=== PATIENT | male | born 1970 | race Caucasian/White ===

== ENCOUNTER → 2017-01-27 | Outpatient (CLI) | payer OTHER ==
[~2017-01-27] MED LIST: ACET-1256 PO; ASCA500 PO; CHOL100010 PO; LSN20 PO; MULT-506 PO; OMEG10007 PO
[2017-01-27 14:13] LABS: HEMATOCRIT 44.2 % (42-52); MEAN CELL VOLUME 83.2 fL (80-100); MEAN CORPUSCULAR HEMOGLOBIN 29.4 pg (25-34); MEAN CORPUSCULAR HGB CONC 35.3 g/dl (32-36); PLATELET COUNT 216 K/uL (130-400); RED BLOOD COUNT 5.31 M/uL (4.7-6.1); WHITE BLOOD COUNT 5.79 K/uL (4.8-10.8)
[2017-01-27 14:59] LABS: BLOOD UREA NITROGEN 19 mg/dl (7-18); GLUCOSE 91 mg/dl (70-99)
[2017-01-27 15:00] LABS: ALB/GLOB RATIO 1.1 (0.9-2); ALKALINE PHOSPHATASE 63 U/L (45-117); ALT/SGPT 27 U/L (12-78); AST/SGOT 15 U/L (15-37); BUN/CREATININE RATIO 17.6 (10-20); CARBON DIOXIDE 28 mmol/L (21-32); CHLORIDE 108 mmol/L (98-107); CHOLESTEROL 174 mg/dl (0-200); CHOLESTEROL/HDL RATIO 5.4; HDL CHOLESTEROL 32 mg/dl; LDL CHOLESTEROL CALCULATED 105 mg/dl; POTASSIUM 4.2 mmol/L (3.5-5.1); SODIUM 141 mmol/L (136-145); TRIGLYCERIDES 187 mg/dl (0-150); VERY LOW DENSITY LIPOPROT CALC 37 mg/dl
[2017-01-27 15:10] LABS: PROSTATE SPECIFIC ANTIGEN 0.675 ng/ml (0.000-4.000)
== END | disposition home or self-care (01) ==
LOC: C.LABBC 10:06
PROVIDERS: ATTEND Internal Medicine
DX: Z00.00 Encounter for general adult medical examination without abnormal findings (principal); I10 Essential (primary) hypertension

== ENCOUNTER → 2017-02-04 | Outpatient (CLI) | payer OTHER ==
--- NOTE | 2017-02-04 15:52 | DIAGNOSTIC IMAGING REPORT ---
BILATERAL LOWER EXTREMITY VENOUS DOPPLER HISTORY: R ARM PAIN, R/O DVT Right COMPARISON STUDY: None. FINDINGS: There is normal compressibility, flow, and augmentation within the right upper extremity deep venous system. IMPRESSION: No sonographic evidence of deep venous thrombosis within the right upper extremity deep venous system. Electronically signed by: Candelario Morrissey M.D. 02/04/2017 3:51 PM Dictated Date/Time: 02/04/2017 3:49 PM
== END | disposition home or self-care (01) ==
LOC: C.ULTRBC 15:04
PROVIDERS: ATTEND Physician Assistant
DX: M79.601 Pain in right arm (principal)

== ENCOUNTER 2017-02-27 12:59 | Emergency (ER) | payer OTHER ==
[~2017-02-27] VITALS: Ht 177.8 cm; Wt 98.5 kg
[2017-02-27 13:04] VITALS: TEMP 37.2; Ht 177.8 cm; Wt 98.5 kg
--- NOTE | 2017-02-27 15:29 | DIAGNOSTIC IMAGING REPORT ---
R VENOUS DOPPLER UPR EXT UNIL HISTORY: Pain. Edema. RUE swelling COMPARISON STUDY: None. FINDINGS: The internal jugular vein is patent. There is normal flow within the subclavian vein. There is normal flow and compressibility within the left axillary, basilic, brachial, radial, ulnar, and visualized cephalic veins. IMPRESSION: No DVT within the upper extremity. Soft tissue evaluation shows no well-defined mass or collection The above report was generated using voice recognition software. It may contain grammatical, syntax or spelling errors. Electronically signed by: Jcarlos Hidalgo M.D. 02/27/2017 3:28 PM Dictated Date/Time: 02/27/2017 3:27 PM
--- NOTE | 2017-02-27 15:33 | DIAGNOSTIC IMAGING REPORT ---
R EXTREMITY NONVASCULAR LIMITED CLINICAL HISTORY: RUE swelling pain. Edema. TECHNIQUE: Ultrasound COMPARISON STUDY: None FINDINGS: No evidence for mass or collection at the site of discomfort/nodularity/edematous change right forearm IMPRESSION: No evidence for mass or collection by ultrasound criteria The above report was generated using voice recognition software. It may contain grammatical, syntax or spelling errors. Electronically signed by: Jcarlos Hidalgo M.D. 02/27/2017 3:32 PM Dictated Date/Time: 02/27/2017 3:31 PM
[2017-02-27 15:51] VITALS: BP 132/89; PULSE 67; O2SAT 99
--- NOTE | 2017-02-27 17:00 | EMERGENCY ROOM VISIT NOTE ---
History First contact with patient: 13:08 Chief Complaint: SWELLING TO EXTREMITY Stated Complaint: SWELLING TO RT ARM History of Present Illness The patient is a 46 year old male who presents to the Emergency Room with complaints of persistent right forearm swelling, hand swelling and pain. The patient reports that he underwent a venipuncture/lab draw approximately 4 weeks ago. When he started to notice discomfort in the arm, his family doctor ordered an ultrasound of the right upper extremity to rule out DVT. His ultrasound was normal. The patient reports that over the past week, he has noticed returning swelling, and felt a "tinge of pain" in his forearm when lifting weights on Tuesday. He has not noticed any redness of the forearm. He denies any paresthesias or numbness of the hand or fingers. He currently denies any pain. The patient is [id number]. Review of Systems 10 system review was performed and was negative except for pertinent positives and negatives as indicated in history of present illness Past Medical/Surgical History Medical Problems: (1) Essential (Primary) Hypertension (2) Gallbladder disease (3) Hypertension Surgical Problems: (1) History of cholecystectomy Family History FH: cancer FH: gallbladder disease FH: hypertension FH: kidney disease Social History Smoking Status: Never Smoker Alcohol Use: none Marital Status: Occupation Status: employed Current/Historical Medications Scheduled Ascorbic Acid (Vitamin C), 500 MG PO DAILY Lisinopril (Lisinopril), 20 MG PO DAILY Multivitamin (Multivitamin), 1 TAB PO DAILY Physical Exam Vital Signs Date Time Temp Pulse Resp B/P (MAP) Pulse Ox O2 Delivery O2 Flow Rate FiO2 02/27/17 15:51 67 18 132/89 99 02/27/17 13:04 37.2 85 20 149/105 97 Room Air Pain Rating (0-10): 0 Physical Exam CONSTITUTIONAL: Healthy and well nourished. Alert and oriented X 3 with positive affect. HEENT: Normocephalic, atraumatic. Pupils equal, round and reactive. NECK: Full active range of motion without discomfort. MUSCULOSKELETAL: Examination of the right upper extremity shows larger girth compared to the left. I do not notice any erythema, ecchymosis or streaking. No palpable cords are noted through the volar forearm region. He has no tenderness to palpation or fullness through the antecubital space. He has no worsening pain with resisted flexion of the wrist. Capillary refill is less than 2 seconds. INTEGUMENTARY: No rash or other significant dermatologic conditions noted. NEUROLOGIC: No focal neurologic deficits noted. Right hand and fingers are sensory intact. Medical Decision & Procedures ER Provider Diagnostic Interpretation: Venous ultrasound of the right upper extremity is negative for DVT. A nonvascular soft tissue ultrasound of the forearm was also performed to show no evidence for fluid collections. Radiologist reports were reviewed. ED Course Patient history and physical exam were performed. Nurse's notes were reviewed. Vital signs were reviewed, showing an elevated blood pressure 149/105. Venous ultrasound and on vascular ultrasound of the right forearm did not show any evidence for deep vein thrombosis or underlying fluid collections. The patient was encouraged to limit activities, and apply heat to the arm. He was encouraged to elevate the arm for subjective swelling and pain. Ibuprofen or Tylenol if needed for additional pain relief. Was encouraged to follow-up with his PCP as needed for further management. Medical Decision Blood Pressure Screening Patient's blood pressure: Normal blood pressure Impression Primary Impression: Swelling of right upper extremity Departure Information Dispostion Home / Self-Care Condition GOOD Forms HOME CARE DOCUMENTATION FORM, IMPORTANT VISIT INFORMATION Patient Instructions My [facility] Additional Instructions Limited use of right arm until swelling improves. Follow-up with your family doctor as needed.
== END 2017-02-27 15:52 | disposition home or self-care (01) ==
LOC: C.EDB 13:01 → C.EDD 15:52
DX: M79.89 Other specified soft tissue disorders (principal); M79.601 Pain in right arm; I10 Essential (primary) hypertension

== ENCOUNTER 2017-08-01 16:41 | Emergency (ER) | payer OTHER ==
[~2017-08-01] VITALS: Ht 177.8 cm; Wt 95.0 kg
[~2017-08-01 16:41] MED LIST changes: -ACET-1256 PO; -CHOL100010 PO; -OMEG10007 PO
[2017-08-01 17:03] VITALS: TEMP 36.6; Ht 177.8 cm; Wt 95.0 kg
--- NOTE | 2017-08-01 18:29 | DIAGNOSTIC IMAGING REPORT ---
CHEST ONE VIEW PORTABLE CLINICAL HISTORY: Atypical chest pain COMPARISON STUDY: No previous studies for comparison. FINDINGS: The cardiac and mediastinal contours are normal. There is no evidence of focal pulmonary consolidation. There is no evidence of failure. No pleural effusions are visualized.[ IMPRESSION: No active disease in the chest. Electronically signed by: Charli Shirley M.D. 08/01/2017 6:28 PM Dictated Date/Time: 08/01/2017 6:27 PM
[2017-08-01 18:40] VITALS: O2SAT 98
[2017-08-01 19:06] LABS: BASO % 0.1 %; BASO ABS # 0.01 K/uL (0-0.2); EOS % 0.4 %; EOS ABS # 0.03 K/uL (0-0.5); HEMATOCRIT 43.5 % (42-52); HEMOGLOBIN 15.7 g/dL (14.0-18.0); IG# 0.01 K/uL (0.00-0.02); LYMPH % 18.3 %; LYMPH ABS # 1.26 K/uL (1.2-3.4); MEAN CELL VOLUME 82.9 fL (80-100); MEAN CORPUSCULAR HEMOGLOBIN 29.9 pg (25-34); MEAN CORPUSCULAR HGB CONC 36.1 g/dl (32-36); MEAN PLATELET VOLUME 10.4 fL (7.4-10.4); MONO % 6.1 %; MONO ABS # 0.42 K/uL (0.11-0.59); NEUT ABS # 5.15 K/uL (1.4-6.5); PLATELET COUNT 195 K/uL (130-400); RED CELL DISTRIBUTION WIDTH CV 12.5 % (11.5-14.5); RED CELL DISTRIBUTION WIDTH SD 37.6 fL (36.4-46.3); WHITE BLOOD COUNT 6.88 K/uL (4.8-10.8)
--- NOTE | 2017-08-01 19:21 | EMERGENCY ROOM VISIT NOTE ---
History Report prepared by Slim: Demetrius Walker Under the Supervision of: Dr. Ede Pop M.D. First contact with patient: 18:04 Chief Complaint: CARDIAC ASSESSMENT Stated Complaint: CHEST DISCOMFORT Nursing Triage Summary: pt reports started with L side chest discomfort around 1430 radiation into L shoulder . pt denies increased sob deniesNV or DEXTER at this tiem History of Present Illness The patient is a 46 year old male who presents to the Emergency Room with complaints of constant left-sided chest discomfort beginning at 1430 today. The patient states that his design consultant recommended that he come to the emergency department today. He notes that he regularly sees his design consultant once a year for his hypertension. He reports that his discomfort felt like indigestion, but states that he is not currently feeling any discomfort. He notes that his discomfort radiated to his left shoulder into his left underarm. He reports that he occasionally feels chest discomfort when he exerts himself. He also complains of shakes and chills, but states that these symptoms may be due to his nervousness. He notes that he recently flew to [place] at the beginning of last month. He reports that his father had a history of hypertension as well , but states that he does not have any family history of other heart issues. Pt denies cough, SOB, sorethroat, LOC, headache, fevers, diaphoresis, visual changes, neck pain, tearing pain radiating to the back, personal history or family history of aneurysm or pulmonary embolism, breathing difficulties, leg swelling, coagulation abnormalities, recent surgery, nausea, vomiting, abdominal pain, melena, hematochezia, urinary symptoms, numbness, weakness, lymphadenopathy, rash, or other complaints. Source of History: patient Onset: 1430 today Position: chest (left) Timing: constant Modifying Factors (Worsening): exertion Note: He also complains of left shoulder discomfort, left underarm discomfort, chills , and shakes. Review of Systems See HPI for pertinent positives and negatives. A total of ten systems were reviewed and were otherwise negative. Past Medical & Surgical Medical Problems: (1) Essential (Primary) Hypertension (2) Gallbladder disease (3) Hypertension Surgical Problems: (1) History of cholecystectomy Family History FH: cancer FH: gallbladder disease FH: hypertension FH: kidney disease Social History Smoking Status: Never Smoker Alcohol Use: none Marital Status: Housing Status: lives with family Occupation Status: employed Current/Historical Medications Scheduled Lisinopril (Lisinopril), 20 MG PO DAILY Allergies Coded Allergies: Amiodarone (Unverified Allergy, Severe, PT FELT LIKE HIS "HEAD BLOWS UP", 02/27/17) Physical Exam Vital Signs Date Time Temp Pulse Resp B/P (MAP) Pulse Ox O2 Delivery O2 Flow Rate FiO2 08/01/17 22:46 88 20 143/100 98 Room Air 08/01/17 22:22 100 20 160/102 98 Room Air 08/01/17 21:15 72 18 160/109 98 Room Air 08/01/17 19:24 93 18 166/114 97 Room Air 08/01/17 18:40 98 Room Air 08/01/17 18:40 98 Room Air 08/01/17 18:30 81 08/01/17 17:03 36.6 84 20 176/100 98 Room Air Physical Exam GENERAL: Awake, alert, well-appearing, in no distress HENT: Normocephalic, atraumatic. Oropharynx unremarkable. EYES: Normal conjunctiva. Sclera non-icteric. NECK: Supple. No nuchal rigidity. FROM. No masses. RESPIRATORY: Clear to auscultation. No wheezes. CARDIAC: Normal rate. Normal rhythm. No murmurs. No rubs. Extremities warm and well perfused. Pulses equal. No JVD. GI: Soft, non-distended. No tenderness to palpation. No rebound or guarding. No masses. RECTAL: Deferred. MUSCULOSKELETAL: Atraumatic. Chest examination reveals no tenderness. The back is symmetrical on inspection without obvious abnormality. There is no CVA tenderness to palpation. No joint edema. LOWER EXTREMITIES: Calves are equal size bilaterally and non-tender. No edema. No discoloration. NEURO: Normal sensorium. No sensory or motor deficits noted. SKIN: No rash or jaundice noted. Medical Decision & Procedures ER Provider Diagnostic Interpretation: Radiology results as stated below per my review and radiologist interpretation: CHEST ONE VIEW PORTABLE CLINICAL HISTORY: Atypical chest pain COMPARISON STUDY: No previous studies for comparison. FINDINGS: The cardiac and mediastinal contours are normal. There is no evidence of focal pulmonary consolidation. There is no evidence of failure. No pleural effusions are visualized.[ IMPRESSION: No active disease in the chest. Electronically signed by: Charli Shirley M.D. 08/01/2017 6:28 PM Laboratory Results 08/01/17 18:43 Red Blood Count 5.25, Mean Corpuscular Volume 82.9, Mean Corpuscular Hemoglobin 29.9, Mean Corpuscular Hemoglobin Concent 36.1, Mean Platelet Volume 10.4, Neutrophils (%) (Auto) 75.0, Lymphocytes (%) (Auto) 18.3, Monocytes (%) (Auto) 6.1, Eosinophils (%) (Auto) 0.4, Basophils (%) (Auto) 0.1, Neutrophils # (Auto) 5.15, Lymphocytes # (Auto) 1.26, Monocytes # (Auto) 0.42, Eosinophils # (Auto) 0.03, Basophils # (Auto) 0.01 08/01/17 18:43 Test 08/01/17 18:43 08/01/17 19:24 08/01/17 21:00 White Blood Count 6.88 K/uL (4.8-10.8) Red Blood Count 5.25 M/uL (4.7-6.1) Hemoglobin 15.7 g/dL (14.0-18.0) Hematocrit 43.5 % (42-52) Mean Corpuscular Volume 82.9 fL (80-100) Mean Corpuscular Hemoglobin 29.9 pg (25-34) Mean Corpuscular Hemoglobin Concent 36.1 g/dl (32-36) Platelet Count 195 K/uL (130-400) Mean Platelet Volume 10.4 fL (7.4-10.4) Neutrophils (%) (Auto) 75.0 % Lymphocytes (%) (Auto) 18.3 % Monocytes (%) (Auto) 6.1 % Eosinophils (%) (Auto) 0.4 % Basophils (%) (Auto) 0.1 % Neutrophils # (Auto) 5.15 K/uL (1.4-6.5) Lymphocytes # (Auto) 1.26 K/uL (1.2-3.4) Monocytes # (Auto) 0.42 K/uL (0.11-0.59) Eosinophils # (Auto) 0.03 K/uL (0-0.5) Basophils # (Auto) 0.01 K/uL (0-0.2) RDW Standard Deviation 37.6 fL (36.4-46.3) RDW Coefficient of Variation 12.5 % (11.5-14.5) Immature Granulocyte % (Auto) 0.1 % Immature Granulocyte # (Auto) 0.01 K/uL (0.00-0.02) Anion Gap 7.0 mmol/L (3-11) Est Creatinine Clear Calc Drug Dose 98.0 ml/min Estimated GFR () 93.8 Estimated GFR (Non- 81.0 BUN/Creatinine Ratio 13.3 (10-20) Calcium Level 8.9 mg/dl (8.5-10.1) Total Bilirubin 0.5 mg/dl (0.2-1) Direct Bilirubin 0.1 mg/dl (0-0.2) Aspartate Amino Transf (AST/SGOT) 19 U/L (15-37) Alanine Aminotransferase (ALT/SGPT) 47 U/L (12-78) Alkaline Phosphatase 65 U/L (45-117) Total Creatine Kinase 119 U/L (39-308) Creatine Kinase MB < 0.5 ng/ml (0.5-3.6) Creatine Kinase MB Ratio (0-3.0) Total Protein 7.7 gm/dl (6.4-8.2) Albumin 4.1 gm/dl (3.4-5.0) Lipase 178 U/L (73-393) Bedside D-Dimer 249 ng/mlFEU (0-450) Troponin I < 0.015 ng/ml (0-0.045) Laboratory results reviewed by me Medications Administered Medications (Trade) Dose Ordered Sig/Shabana Route Start Time Stop Time Status Last Admin Dose Admin Lisinopril (Zestril Tab) 20 mg NOW STAT PO 08/01/17 22:33 08/01/17 22:34 DC 08/01/17 22:33 20 MG Aspirin (Aspirin Chew) 324 mg NOW STAT PO 08/01/17 22:33 08/01/17 22:34 DC 08/01/17 22:33 324 MG ECG Per My Interpretation Indication: chest pain Rate (beats per minute): 76 Rhythm: normal sinus Findings: no acute ischemic change, no ectopy Comparison ECG Date: 04/27/16 Change: no significant change Change: EKG #2:Normal sinus, 86, nonspecific ST, prolonged QTC, no ectopy. Compared to EKG #1, nonspecific T wave abnormality is new. ED Course 1810: The patient was evaluated in room A12. A complete history and physical exam was performed. 2003: I reevaluated and updated the patient. 2010: I called out for cardiology. 2048: I reevaluated and updated the patient. I alerted him about the delay for cardiology. 2119: [facility] [place]. Christianson - [facility] [facility] [place]: I rechecked the patient. 2232: Aspirin 324mg PO, Lisinopril 20mg PO 2235: I reevaluated the patient. Discussed results and discharge instructions: he verbalized understanding and agreement. The patient is ready for discharge. Medical Decision Triage Nursing notes reviewed. The patient's presentation and history were concerning for chest pain. Etiologies such as cardiac ischemia, aortic dissection, pulmonary embolism, pneumonia, pneumothorax, musculoskeletal, infections, gastrointestinal, as well as others were entertained. The patient was evaluated. He was currently pain-free. His ECG was nonischemic. Repeat ECG showed some nonspecific changes in the lateral T waves. Chest x-ray was negative. CBC, chemistries and LFTs were normal. Cardiac markers and d-dimer performed. These were negative. The patient was reassessed and was doing well. Consultation was placed with cardiology. The patient had a repeat troponin which was 0. I did discuss the case with [facility] cardiology, Dr. Smart. As the patient has atypical symptoms, no ischemic changes on ECG, and 2 negative troponins it was felt that he could be discharged with aspirin, increasing his lisinopril, and having an urgent stress test done through the office. The patient felt very comfortable with this plan. If his symptoms recur or other symptoms develop he will come back to the emergency department right away. He will take it easy.I gave my usual and customary discussion regarding this issue. By the evaluation outlined above other emergent etiologies such as those listed in the differential, as well as others, were deemed relatively unlikely. The patient was educated about the findings as listed above. All questions were answered and the patient was pleased with the treatment. Return instructions were outlined and the patient was discharged in stable condition. The patient was referred to cardiology for follow-up for a recheck of the current condition. Blood Pressure Screening Patient's blood pressure: Elevated blood pressure Referred to cardiology. Impression Primary Impression: Left sided chest pain Scribe Attestation The scribe's documentation has been prepared under my direction and personally reviewed by me in its entirety. I confirm that the note above accurately reflects all work, treatment, procedures, and medical decision making performed by me. Departure Information Dispostion Home / Self-Care Referrals Kendra Lutz M.D. (PCP) Forms IMPORTANT VISIT INFORMATION Patient Instructions My [facility] Additional Instructions Take a baby aspirin daily until directed otherwise by cardiology. Take lisinopril 20 mg twice daily until directed otherwise by your design consultant. You should hear from the design consultant office by noon tomorrow regarding a stress test. If you do not hear from the office call and let them know that Dr. Smart was made aware of the issue and is going to be arranging a stress test in the next few days. Acetaminophen(Tylenol) may be used for fever or pain. Use 1000mg every six hours as needed. Avoid using more than 4000mg in a 24 hour period. Rest and drink plenty of fluids as tolerated. Avoid strenuous activities and anything that worsens your pain. Resume normal activities once your symptoms resolve. Return to the ER immediately for worsening or persistent chest pain, abdominal pain, vomiting, fevers, chest pains, difficulty breathing, worsening of your condition, or as needed.
[2017-08-01 19:24] LABS: ALBUMIN 4.1 gm/dl (3.4-5.0); ALT/SGPT 47 U/L (12-78); AST/SGOT 19 U/L (15-37); BLOOD UREA NITROGEN 15 mg/dl (7-18); CALCIUM 8.9 mg/dl (8.5-10.1); CARBON DIOXIDE 26 mmol/L (21-32); CREATININE 1.09 mg/dl (0.60-1.40); GLUCOSE 100 mg/dl (70-99); LIPASE 178 U/L (73-393); POTASSIUM 4.1 mmol/L (3.5-5.1); SODIUM 139 mmol/L (136-145)
[2017-08-01 19:29] LABS: ALKALINE PHOSPHATASE 65 U/L (45-117); CKMB < 0.5 ng/ml (0.5-3.6); TOTAL PROTEIN 7.7 gm/dl (6.4-8.2)
[2017-08-01] MEDS ORDERED: ASPIRIN 81 MG CHEW PO STA (22:33)
[2017-08-01] MEDS ORDERED: LISINOPRIL 20 MG TAB PO STA (22:33)
[2017-08-01 22:46] VITALS: BP 143/100; PULSE 88; O2SAT 98
== END 2017-08-01 22:51 | disposition home or self-care (01) ==
LOC: C.EDB 16:42 → C.EDA 22:51
DX: R07.9 Chest pain, unspecified (principal); I10 Essential (primary) hypertension; Z90.49 Acquired absence of other specified parts of digestive tract; Z82.49 Family history of ischemic heart disease and other diseases of the circulatory system; Z88.8 Allergy status to other drugs, medicaments and biological substances

== ENCOUNTER 2017-10-16 12:26 | Emergency (ER) | payer OTHER ==
[~2017-10-16] VITALS: Ht 177.8 cm; Wt 98.1 kg
[~2017-10-16 12:26] MED LIST changes: -ASCA500 PO; -MULT-506 PO
[2017-10-16 12:31] VITALS: TEMP 36.6; Ht 177.8 cm; Wt 98.1 kg
[2017-10-16] MEDS ORDERED: LORAZEPAM 1 MG TAB SL STA (12:45)
[2017-10-16] MEDS ORDERED: ONDANSETRON INJ 2 MG/ML 2 ML VIAL IV STA (12:45)
[2017-10-16 12:54] VITALS: O2SAT 100
--- NOTE | 2017-10-16 13:12 | EMERGENCY ROOM VISIT NOTE ---
History Report prepared by Slim: Fabian Narayan Under the Supervision of: Dr. Ede Pop M.D. First contact with patient: 12:29 Chief Complaint: SEIZURE Stated Complaint: SEIZURE/STROKE, FAINTING OR PANIC ATTACK History of Present Illness The patient is a 47 year old male who presents to the Emergency Room with complaints of a sudden near syncopal episode occurring prior to arrival. The patient states that he was driving [place], and he noticed that he had some blood in his eye, and then 5 minutes later he started to hyperventilate and felt like he was going to pass out. The patient states that he then started to lose control of his hands, and they went numb and would not move. He notes that he then started to hyperventilate, though he did not have any mouth numbness. The patient states that he felt fine before this episode, and he states that he has been having some allergies recently and taking Julianne D. The patient has not eaten much today, and he states that his mouth has been dry the past day. The patient has only had three similar episodes of anxiety in the past, and he does not take any anxiety medications. He notes that he has some chest discomfort currently, and he notes that he has had this in the past with his anxiety. The patient has had a stress test several weeks ago which had no issues, and he states that his blood pressure has been fine recently, and he is taking lisinopril. He states that he has not been coughing, sneezing, or vomiting recently, and the patient notes that he has a problem with seeing blood. Pt denies headache, fevers, chills, diaphoresis, visual changes, neck pain, nausea, vomiting, abdominal pain, back pain, melena, hematochezia, urinary symptoms, weakness, lymphadenopathy, rash, or other complaints. Source of History: patient Onset: prior to arrival Position: other (global) Quality: other (near syncopal episode) Timing: other (sudden) Associated Symptoms: + numbness Note: Associated symptoms: Hyperventilate, lost control of his hands, hand numbness, chest discomfort Review of Systems See HPI for pertinent positives and negatives. A total of ten systems were reviewed and were otherwise negative. Past Medical & Surgical Medical Problems: (1) Essential (Primary) Hypertension (2) Gallbladder disease (3) Hypertension Surgical Problems: (1) History of cholecystectomy Family History FH: cancer FH: gallbladder disease FH: hypertension FH: kidney disease Social History Smoking Status: Never Smoker Alcohol Use: none Marital Status: Housing Status: lives with family Occupation Status: employed Current/Historical Medications Scheduled Lisinopril (Lisinopril), 20 MG PO DAILY Allergies Coded Allergies: Amiodarone (Unverified Allergy, Severe, PT FELT LIKE HIS "HEAD BLOWS UP", 10/16/17) Physical Exam Vital Signs Date Time Temp Pulse Resp B/P (MAP) Pulse Ox O2 Delivery O2 Flow Rate FiO2 10/16/17 14:30 68 16 143/92 98 Room Air 10/16/17 12:54 100 Room Air 10/16/17 12:32 70 10/16/17 12:31 36.6 71 27 155/97 100 Room Air Physical Exam GENERAL: Awake, alert, anxious appearing, no distress HENT: Normocephalic, atraumatic. TM's normal. Oropharynx unremarkable. EYES: PERRL. EOMI. Normal conjunctiva except for a small subconjunctival hemorrhage on the right lateral sclera. No hyphema. Cornea clear. Sclera non- icteric. NECK: Supple. No nuchal rigidity. FROM. No bruit. RESPIRATORY: Breath sounds equal. No wheezes. No rhonchi. Normal respiratory effort. CARDIAC: Normal rate. Regular rhythm. No murmurs. No rubs. No JVD. GI: Soft, non distended. No tenderness to palpation. No rebound or guarding. No masses. RECTAL: Deferred. MUSCULOSKELETAL: Unremarkable. No edema. No discoloration. Gross motor strength symmetric. NEURO: Cranial nerves 2-12 grossly intact except for subjective tingling of mid face. Normal sensorium. No sensory or motor deficits noted. Speech normal. No pronator drift. Normal rapid alternating movements. Normal heel to luo. SKIN: No rash or jaundice noted. LYMPH: No adenopathy. Medical Decision & Procedures Laboratory Results 10/16/17 13:05 Red Blood Count 5.33, Mean Corpuscular Volume 81.4, Mean Corpuscular Hemoglobin 28.9, Mean Corpuscular Hemoglobin Concent 35.5, Mean Platelet Volume 10.3, Neutrophils (%) (Auto) 63.9, Lymphocytes (%) (Auto) 28.2, Monocytes (%) (Auto) 6.4, Eosinophils (%) (Auto) 0.5, Basophils (%) (Auto) 0.3, Neutrophils # (Auto) 3.71, Lymphocytes # (Auto) 1.64, Monocytes # (Auto) 0.37, Eosinophils # (Auto) 0.03, Basophils # (Auto) 0.02 10/16/17 13:05 Test 10/16/17 13:05 White Blood Count 5.81 K/uL (4.8-10.8) Red Blood Count 5.33 M/uL (4.7-6.1) Hemoglobin 15.4 g/dL (14.0-18.0) Hematocrit 43.4 % (42-52) Mean Corpuscular Volume 81.4 fL (80-100) Mean Corpuscular Hemoglobin 28.9 pg (25-34) Mean Corpuscular Hemoglobin Concent 35.5 g/dl (32-36) Platelet Count 213 K/uL (130-400) Mean Platelet Volume 10.3 fL (7.4-10.4) Neutrophils (%) (Auto) 63.9 % Lymphocytes (%) (Auto) 28.2 % Monocytes (%) (Auto) 6.4 % Eosinophils (%) (Auto) 0.5 % Basophils (%) (Auto) 0.3 % Neutrophils # (Auto) 3.71 K/uL (1.4-6.5) Lymphocytes # (Auto) 1.64 K/uL (1.2-3.4) Monocytes # (Auto) 0.37 K/uL (0.11-0.59) Eosinophils # (Auto) 0.03 K/uL (0-0.5) Basophils # (Auto) 0.02 K/uL (0-0.2) RDW Standard Deviation 36.8 fL (36.4-46.3) RDW Coefficient of Variation 12.4 % (11.5-14.5) Immature Granulocyte % (Auto) 0.7 % Immature Granulocyte # (Auto) 0.04 K/uL (0.00-0.02) Prothrombin Time 11.0 SECONDS (9.0-12.0) Prothromb Time International Ratio 1.0 (0.9-1.1) Activated Partial Thromboplast Time 24.0 SECONDS (21.0-31.0) Partial Thromboplastin Ratio 0.9 Anion Gap 10.0 mmol/L (3-11) Est Creatinine Clear Calc Drug Dose 92.5 ml/min Estimated GFR () 86.4 Estimated GFR (Non- 74.6 BUN/Creatinine Ratio 15.0 (10-20) Calcium Level 9.0 mg/dl (8.5-10.1) Magnesium Level 1.9 mg/dl (1.8-2.4) Total Bilirubin 0.7 mg/dl (0.2-1) Direct Bilirubin 0.1 mg/dl (0-0.2) Aspartate Amino Transf (AST/SGOT) 21 U/L (15-37) Alanine Aminotransferase (ALT/SGPT) 32 U/L (12-78) Alkaline Phosphatase 61 U/L (45-117) Total Protein 8.0 gm/dl (6.4-8.2) Albumin 4.2 gm/dl (3.4-5.0) Thyroid Stimulating Hormone (TSH) 1.560 uIu/ml (0.300-4.500) Laboratory results reviewed by me Medications Administered Medications (Trade) Dose Ordered Sig/Shabana Route Start Time Stop Time Status Last Admin Dose Admin Lorazepam (Ativan Tab) 1 mg NOW STAT SL 10/16/17 12:45 10/16/17 12:47 DC 10/16/17 12:59 1 MG Ondansetron HCl (Zofran Inj) 4 mg NOW STAT IV 10/16/17 12:45 10/16/17 12:47 DC 10/16/17 13:12 4 MG ECG Per My Interpretation Indication: syncope Rate (beats per minute): 70 Rhythm: normal sinus Findings: no acute ischemic change, no ectopy ED Course 1229: The patient was evaluated in room B1. A complete history and physical exam was performed. 1245: Zofran 4mg IV, Ativan 1mg SL 1334: I reevaluated the patient, and he is feeling better. He is going to get a PO challenge. 1443: I reevaluated the patient, and he feels back to normal. Discussed results and discharge instructions: he verbalized understanding and agreement. The patient is ready for discharge. 1500: Ativan 1mg Home Pack PO Medical Decision Prior records/ancillary studies reviewed. Triage Nursing notes reviewed and agree them. Additional history obtained from the patient's significant other. The patient's history was concerning for hyperventilation, anxiety, and syncope. Differential diagnosis: Etiologies such as infection, hypoglycemia, electrolyte abnormalities, cardiac sources, intracerebral event, toxicologic, neurologic, as well as others were entertained. Physical examination: As above. Nonfocal. Nervous appearing. ER treatment provided: IV Zofran Oral sublingual Ativan On reassessment the patient felt better. Diagnostics interpretation by me: ECG: Normal as above. The labs revealed an unremarkable CBC and chemistry panel. Imaging studies: Deferred The patient became anxious after being told about a subconjunctival hemorrhage on the right lateral sclera. He then developed hyperventilation. He felt lightheaded. He describes a presyncopal prodrome and then had a brief syncopal episode. No seizure activity described. He did not have incontinence or tongue biting. He had carpal spasm and perioral numbness complaints. He noted feeling very anxious. He had no lateralizing findings. His neurologic examination was normal. I did see the patient several months ago for chest pain issues and he did note nervousness at the time. His cardiac workup including outpatient stress testing was unremarkable. He was treated with Zofran and sublingual Ativan. He felt significantly better with this. He was given an oral challenge with crackers and mayelin magdalena. He felt back to normal. I discussed close outpatient follow-up. The patient was concerned that the episode may occur again with the anxiety and I did offer him a few Ativan to go home with. He was provided a home pack. He will follow-up with his primary physician. I gave my usual and customary discussion regarding this issue. By the evaluation outlined above other emergent etiologies such as those listed in the differential, as well as others, were deemed relatively unlikely. The patient was educated about the findings as listed above. All questions were answered and the patient was pleased with the treatment. Return instructions were outlined and the patient was discharged in stable condition. The patient was referred to his PCP for follow-up for a recheck of the current condition. Medication Reconcilliation Current Medication List: was personally reviewed by me Blood Pressure Screening Patient's blood pressure: Elevated blood pressure Blood pressure disposition: Referred to PCP Impression Primary Impression: Syncope Additional Impressions: Subconjunctival hemorrhage Anxiety Scribe Attestation The scribe's documentation has been prepared under my direction and personally reviewed by me in its entirety. I confirm that the note above accurately reflects all work, treatment, procedures, and medical decision making performed by me. Departure Information Dispostion Home / Self-Care Referrals Kendra Lutz M.D. (PCP) Forms HOME CARE DOCUMENTATION FORM, IMPORTANT VISIT INFORMATION Patient Instructions My [facility] Additional Instructions Ativan 1 mg: Take 1/2-1 pill up to 3 times daily as needed for severe anxiety. Do not drive if taking. May cause drowsiness. Do not take if you are at work or doing any activity where being under the influence may be dangerous. Acetaminophen(Tylenol) may be used for fever or pain. Use 1000mg every six hours as needed. Avoid using more than 4000mg in a 24 hour period. Rest and drink plenty of fluids as tolerated. Continue current medications. Return to the ER for passing out, chest pain, headache, persistent vomiting, fevers, abdominal pain, chest pains, difficulty breathing, black or bloody stools, worsening of your condition, or as needed. Follow up with your primary physician in 2-3 days for a recheck of your current condition Problem Qualifiers
[2017-10-16 13:40] LABS: ALBUMIN 4.2 gm/dl (3.4-5.0); CREATININE 1.16 mg/dl (0.60-1.40); POTASSIUM 3.7 mmol/L (3.5-5.1)
[2017-10-16 14:23] LABS: BASO % 0.3 %; BASO ABS # 0.02 K/uL (0-0.2); EOS % 0.5 %; EOS ABS # 0.03 K/uL (0-0.5); HEMATOCRIT 43.4 % (42-52); HEMOGLOBIN 15.4 g/dL (14.0-18.0); IG# 0.04 K/uL (0.00-0.02); LYMPH % 28.2 %; LYMPH ABS # 1.64 K/uL (1.2-3.4); MEAN CELL VOLUME 81.4 fL (80-100); MEAN CORPUSCULAR HEMOGLOBIN 28.9 pg (25-34); MEAN CORPUSCULAR HGB CONC 35.5 g/dl (32-36); MEAN PLATELET VOLUME 10.3 fL (7.4-10.4); MONO % 6.4 %; MONO ABS # 0.37 K/uL (0.11-0.59); NEUT % 63.9 %; NEUT ABS # 3.71 K/uL (1.4-6.5); PLATELET COUNT 213 K/uL (130-400); RED CELL DISTRIBUTION WIDTH CV 12.4 % (11.5-14.5); RED CELL DISTRIBUTION WIDTH SD 36.8 fL (36.4-46.3); WHITE BLOOD COUNT 5.81 K/uL (4.8-10.8)
[2017-10-16 14:30] VITALS: BP 143/92; PULSE 68; O2SAT 98
[2017-10-16] MEDS ORDERED: ATIVAN 1MG HOMEPACK PO ONE (15:00)
== END 2017-10-16 14:58 | disposition home or self-care (01) ==
LOC: C.EDB 12:27
DX: R55 Syncope and collapse (principal); H11.30 Conjunctival hemorrhage, unspecified eye; F41.9 Anxiety disorder, unspecified; I10 Essential (primary) hypertension

== ENCOUNTER → 2018-01-16 | Outpatient (CLI) | payer OTHER ==
[~2018-01-16] MED LIST changes: +LISI-726 PO; -LSN20 PO
--- NOTE | 2018-01-16 07:43 | DIAGNOSTIC IMAGING REPORT ---
(LIVER) ABDOMEN LIMITED CLINICAL HISTORY: 47 years-old Male presenting with ABDOMINAL DISCOMFORT IN RUQ. TECHNIQUE: Real-time grayscale and limited color Doppler ultrasound imaging of the abdomen limited to the right upper quadrant was performed. COMPARISON: None. FINDINGS: Pancreas: Visualized portions of the pancreatic head and body normal. Liver: Normal echogenicity and echotexture. The liver measures 17.0 cm in maximal sagittal dimension. Subcentimeter cystic lesion in the left lobe of the liver potentially with a small septation, likely hepatic cyst. Main portal vein patent with normal directional flow. Biliary: No intrahepatic biliary ductal dilatation. Common bile duct measures up to 4 mm in diameter. Gallbladder: Surgically absent. Right kidney: Normal in appearance without evidence of hydronephrosis. Ascites: None. Other: None. IMPRESSION: 1. No biliary ductal dilatation. 2. Postsurgical changes of cholecystectomy. Electronically signed by: Nathan Headley M.D. 01/16/2018 7:41 AM Dictated Date/Time: 01/16/2018 7:39 AM
== END | disposition home or self-care (01) ==
LOC: C.ULTR 07:01
PROVIDERS: ATTEND Internal Medicine
DX: R10.11 Right upper quadrant pain (principal); Z90.49 Acquired absence of other specified parts of digestive tract